=== PATIENT | female | born 1980 | race Caucasian/White ===

== ENCOUNTER 2020-04-20 03:10 | Inpatient (IN) | payer OTHER ==
[~2020-04-20] VITALS: Ht 157.5 cm; Wt 71.9 kg
[2020-04-20 04:35] LABS: microscopic required? NO
[2020-04-20 04:40] LABS: urine erythrocyte NEGATIVE (NEGATIVE)
[2020-04-20 04:41] LABS: PLATELET COUNT 343 x10^3mcL (179-408); RED CELL DISTRIBUTION WIDTH 18.8 % (12.3-17.7)
[2020-04-20 05:06] LABS: FREE T4 1.06 ng/dL (0.76-1.46); FREE THYROXINE INDEX 3.2 ug/dL (1.4-4.5); T4(THYROXINE) 11.5 ug/dL (4.7-13.3)
[2020-04-20 05:11] LABS: T3 TOTAL 1.56 ng/mL
[2020-04-20 05:51] LABS: CALCIUM 8.5 mg/dL (8.5-10.1); CARBON DIOXIDE 21.9 mmol/L (21-32); CHLORIDE SERUM 105 mmol/L (98-107); CREATININE SERUM 0.7 mg/dL (0.6-1.0); GFR1 > 60 mL/min; GLUCOSE SERUM 82 mg/dL (74-106); POTASSIUM SERUM 3.6 mmol/L (3.5-5.1); SODIUM SERUM 140 mmol/L (136-145)
[2020-04-20 05:55] LABS: ALKALINE PHOSPHATASE 90 U/L (46-116); ALT/SGPT 21 U/L (14-59); AST/SGOT 17 U/L (15-37); BILIRUBIN TOTAL 0.2 mg/dL (0.20-1.00); LIPASE 95 IU/L (73-393); TOTAL PROTEIN, SERUM 7.2 g/dL (6.4-8.2); TRIGLYCERIDES 171 mg/dL (<150)
[2020-04-20 05:59] LABS: ALBUMIN 2.7 g/dL (3.4-5.0); CHOLESTEROL 229 mg/dL (<200); CHOLESTEROL/HDL RATIO 3.4; HDL CHOLESTEROL 67 mg/dL (40-60)
[2020-04-20 10:30] VITALS: BP 121/78
[2020-04-20 16:33] VITALS: BP 125/81
[2020-04-20 20:53] VITALS: BP 110/68
[2020-04-21 04:07] VITALS: BP 111/74
[2020-04-21 06:54] LABS: BASOPHIL % 0.6 % (0.2-1.3); PLATELET COUNT 351 x10^3mcL (179-408)
[2020-04-21 07:09] LABS: CALCIUM 8.3 mg/dL (8.5-10.1); CARBON DIOXIDE 25.9 mmol/L (21-32); CHLORIDE SERUM 100 mmol/L (98-107); CREATININE SERUM 0.6 mg/dL (0.6-1.0); GFR1 > 60 mL/min; GLUCOSE SERUM 101 mg/dL (74-106); MAGNESIUM 1.8 mg/dL (1.8-2.4); PHOSPHOROUS 2.9 mg/dL (2.5-4.9); SODIUM SERUM 136 mmol/L (136-145)
[2020-04-21 07:36] LABS: RED CELL DISTRIBUTION WIDTH 18.8 % (12.3-17.7)
[2020-04-21 08:43] VITALS: BP 124/76
[2020-04-21 11:57] VITALS: BP 123/80
[2020-04-21 16:10] LABS: AMPHETAMINE QUAL UR NONE DETECTED (See below)
[2020-04-21 16:52] VITALS: BP 140/89
[2020-04-21 20:05] VITALS: BP 123/75
[2020-04-22 05:10] VITALS: BP 146/86
[2020-04-22 07:05] LABS: BASOPHIL % 0.8 % (0.2-1.3); PLATELET COUNT 378 x10^3mcL (179-408)
[2020-04-22 07:06] LABS: RED CELL DISTRIBUTION WIDTH 18.6 % (12.3-17.7)
[2020-04-22 07:37] LABS: CALCIUM 8.6 mg/dL (8.5-10.1); CARBON DIOXIDE 24.5 mmol/L (21-32); CHLORIDE SERUM 99 mmol/L (98-107); CREATININE SERUM 0.5 mg/dL (0.6-1.0); GFR1 > 60 mL/min; GLUCOSE SERUM 82 mg/dL (74-106); PHOSPHOROUS 2.2 mg/dL (2.5-4.9); POTASSIUM SERUM 3.3 mmol/L (3.5-5.1); SODIUM SERUM 135 mmol/L (136-145)
[2020-04-22 08:32] VITALS: BP 113/68
[2020-04-22] MEDS ORDERED: XARELTO10 M1 PO (09:15)
[2020-04-22] MEDS ORDERED: XARELTO15 M1 PO (09:15)
[2020-04-22] MEDS ORDERED: XARELTO20 M1 PO (11:28)
[2020-04-22 11:40] VITALS: BP 113/75
== END 2020-04-22 15:06 | disposition home or self-care (01) | DRG 175 ==
LOC: ED 03:10 → DU 06:02
PROVIDERS: Specialist; ADMIT Family Medicine; ATTEND Family Medicine
DX: I26.99 Other pulmonary embolism without acute cor pulmonale (principal); E43 Unspecified severe protein-calorie malnutrition; J90 Pleural effusion, not elsewhere classified; J98.11 Atelectasis; Z20.822 Contact with and (suspected) exposure to COVID-19; M06.9 Rheumatoid arthritis, unspecified; E78.5 Hyperlipidemia, unspecified; E66.9 Obesity, unspecified; Z71.3 Dietary counseling and surveillance; E02 Subclinical iodine-deficiency hypothyroidism; E87.6 Hypokalemia
CPT/HCPCS: 83880; 84439; 85378; 94150; G0378; J1644; J1885; J1940; J2405; J3010; J7030; Q9967; U0003